=== PATIENT | female | born 1960 | race Caucasian/White ===

== ENCOUNTER 2016-10-20 09:34 | Emergency (ER) | payer OTHER, SELFPAY ==
[~2016-10-20 09:34] MED LIST: ALEVE220 M4 PO; FLONASE ALLERG9.9 ML; LISINOPRIL-HCT1 EAC1 PO; MUCINEX D ER T1 EAC2 PO; PRILOSEC OTC20 M1 PO; TYLENOL325 M2 PO
[2016-10-20] MEDS ORDERED: MULTIVITAMINS1 EAC6 PO (10:16)
[2016-10-20] MEDS ORDERED: PREDNISONE20 M1 PO (11:18)
[2016-10-20] MEDS ORDERED: NORCO 5-325 TA1 EACH PO (11:18)
== END 2016-10-20 11:28 ==
LOC: EDMED 09:34
DX: M79.651 Pain in right thigh (principal); M25.561 Pain in right knee; M25.551 Pain in right hip; I10 Essential (primary) hypertension